=== PATIENT | female | born 1985 ===

== ENCOUNTER 2017-04-05 05:52 | Outpatient (CLI) | payer BC, OTHER ==
[~2017-04-05] VITALS: Ht 154.9 cm; Wt 58.0 kg
[2017-04-05 06:31] VITALS: Ht 154.9 cm; Wt 58.0 kg
[2017-04-05] MEDS ORDERED: PRENTAB26 PO (06:33)
== END 2017-04-05 07:59 | disposition home or self-care (01) ==
LOC: MERGE 05:52 → C.OPB 05:52 → C.LD 05:53 → C.OPB 07:59
PROVIDERS: ATTEND Obstetrics & Gynecology
DX: O46.93 Antepartum hemorrhage, unspecified, third trimester (principal); Z3A.25 25 weeks gestation of pregnancy